=== PATIENT | male | born 1995 | race Caucasian/White ===

== ENCOUNTER 2020-01-13 18:04 | Emergency (ER) | payer OTHER, BC ==
[2020-01-13 18:10] VITALS: TEMP 98.5
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
[2020-01-13 19:36] VITALS: BP 138/93; PULSE 91; RESP 18
== END 2020-01-13 19:55 | disposition home or self-care (01) ==
LOC: EC 18:04
DX: R10.12 Left upper quadrant pain (principal); M25.561 Pain in right knee; F17.200 Nicotine dependence, unspecified, uncomplicated; Z98.890 Other specified postprocedural states; V49.50XA Passenger injured in collision with unspecified motor vehicles in traffic accident, initial encounter; Y92.410 Unspecified street and highway as the place of occurrence of the external cause
CPT/HCPCS: 74177; 99284; Q9967